=== PATIENT | female | born 1990 | race Two or more races ===

== ENCOUNTER 2016-03-11 16:06 | Emergency (ER) | payer MEDICAID, OTHER ==
--- NOTE | 2016-03-11 18:18 | US ---
OB ULTRASOUND LESS THAN 14 WEEKS HISTORY: Left lower quadrant pain. 6 weeks 0 days. Transabdominal and transvaginal obstetric ultrasound was performed. FINDINGS: INTRAUTERINE GESTATION: Present MEAN SAC DIAMETER: 2.0 cm, corresponding to an age of 6 weeks 3 days. Gestational sac contour and fluid volume is unremarkable. CROWN-RUMP LENGTH: 0.2 cm, too small for dating. CARDIAC ACTIVITY: Present, with a heart rate of 118 beats per minute. SONOGRAPHIC MEAN GESTATIONAL AGE: 6 weeks 3 days. SONOGRAPHIC EDC: 11/01/2016. YOLK SAC: Present. MAME-GESTATIONAL HEMORRHAGE: Not identified. RIGHT OVARY: 2.3 x 2.8 x 1.0 cm. LEFT OVARY: 4.1 x 2.9 x 2.0 cm. FOCAL ADNEXAL LESIONS: Complex cystic focus on the left measuring 2.1 x 2.4 x 1.7 cm, perhaps related to corpus luteum. Small adjacent echogenic focus measuring 1.2 cm in size. OVARIAN BLOOD FLOW: Documented bilaterally. FREE FLUID: None. IMPRESSION: 1. Single live intrauterine gestation sonographically dating 6 weeks 3 days without perigestational hemorrhage. 2. Probable left-sided corpus luteum, 2.4 cm in size. Additional nondominant echogenic focus measuring 1.2 cm in size, consider eventual follow-up assessment. 3. No free fluid. Ovarian blood flow preserved bilaterally. Results were electronically transmitted to the electronic medical record at 03/11/2016 1814 hours.
[2016-03-11 18:20] LABS: URINE BILIRUBIN NEGATIVE (NEGATIVE); URINE BLOOD 1+ (NEGATIVE); URINE GLUCOSE (UA) NEGATIVE (NEGATIVE); URINE LEUKOCYTE ESTERASE NEGATIVE (NEGATIVE); URINE NITRITE NEGATIVE (NEGATIVE); URINE PROTEIN NEGATIVE (NEGATIVE); URINE UROBILINOGEN NORMAL (0-1 mg/dl)
[2016-03-11 18:38] LABS: URINE APPEARANCE CLEAR; URINE COLOR YELLOW
[2016-03-11 18:39] LABS: URINE BACTERIA RARE; URINE EPITHELIAL CELLS 0-2 /hpf; URINE RBC 0-2 /hpf; URINE WBC 0-2 /hpf
== END 2016-03-11 19:40 | disposition home or self-care (01) ==
LOC: ED 16:06
DX: O34.81 Maternal care for other abnormalities of pelvic organs, first trimester (principal); N83.12 Corpus luteum cyst of left ovary; Z3A.01 Less than 8 weeks gestation of pregnancy

== ENCOUNTER 2016-03-25 18:09 | Emergency (ER) | payer MEDICAID, OTHER ==
[2016-03-25 19:12] LABS: ABSOLUTE NEUTROPHIL COUNT 8.1 K/mm3 (1.8-7.7); BASO # 0.1 K/mm3 (0.0-0.2); BASO % 0.5 % (0.2-1.0); EOS # 0.1 (0.0-0.5); EOS % 0.9 % (0.9-2.9); HEMATOCRIT 38.1 % (37.0-47.0); HEMOGLOBIN 13.1 gm/l (12.0-16.0); IMM NEUT # 0.1 K/mm3 (0-0.2); IMM NEUT% 0.4 % (0-1); LYMPH # 3.9 (1.0-4.8); LYMPH % 30.2 % (15-45); MEAN CELL VOLUME 84.9 fl (81.0-99.0); MEAN CORPUSCULAR HEMOGLOBIN 29.2 pg (27.0-31.0); MEAN CORPUSCULAR HGB CONC 34.4 g/dl (33.0-37.0); MEAN PLATELET VOLUME 9.8 fl (7.4-10.4); MONO # 0.8 (0.0-0.8); MONO % 6.3 % (4-12); NEUT % 61.7 % (43-75); PLATELET COUNT 294 K/mm3 (130-400); RED CELL DISTRIBUTION WIDTH 13.5 % (11.5-14.5)
[2016-03-25 20:57] LABS: URINE BILIRUBIN NEGATIVE (NEGATIVE); URINE BLOOD 2+ (NEGATIVE); URINE COLOR LIGHT YELLOW; URINE GLUCOSE (UA) NEGATIVE (NEGATIVE); URINE LEUKOCYTE ESTERASE NEGATIVE (NEGATIVE); URINE NITRITE NEGATIVE (NEGATIVE); URINE PROTEIN NEGATIVE (NEGATIVE); URINE UROBILINOGEN NORMAL (0-1 mg/dl)
[2016-03-25 20:58] LABS: URINE APPEARANCE HAZY
[2016-03-25 21:14] LABS: URINE WBC NEG /hpf
[2016-03-25 21:15] LABS: URINE BACTERIA 2+
== END 2016-03-25 21:16 | disposition home or self-care (01) ==
LOC: ED 18:09
DX: O20.0 Threatened abortion (principal); Z3A.01 Less than 8 weeks gestation of pregnancy